=== PATIENT | female | born 1985 ===

== ENCOUNTER 2016-06-25 15:43 | Emergency (ER) | payer OTHER ==
[2016-06-25 16:03] VITALS: BMI 24.0
[2016-06-25 16:26] LABS: BASO % 0.4 % (0.0-2.0); EOS # 0.4 K/uL (0.0-0.7); EOS % 3.8 % (0.0-4.0); HEMATOCRIT 33.2 % (34.0-47.0); LYMPH # 1.7 K/uL (1.0-4.3); LYMPH % 16.7 % (20.0-40.0); MEAN CELL VOLUME 93.3 fl (81.0-99.0); MEAN CORPUSCULAR HEMOGLOBIN 30.8 pg (27.0-31.0); MONO # 0.8 K/uL (0.0-0.8); MONO % 7.4 % (0.0-10.0); NEUT # 7.5 K/uL (1.8-7.0); NEUT % 71.7 % (50.0-75.0); NRBC % 0.1 % (0.0-0.0); RED CELL DISTRIBUTION WIDTH 14.1 % (11.5-14.5); WHITE BLOOD COUNT 10.4 K/uL (4.8-10.8)
[2016-06-25 16:44] LABS: ALB/GLOB RATIO 1.2 (1.0-2.1); ALKALINE PHOSPHATASE 89 U/L (38-126); ALT/SGPT 19 U/L (9-52); AST/SGOT 24 U/L (14-36); BILIRUBIN,TOTAL 0.3 mg/dl (0.2-1.3); BLOOD UREA NITROGEN 8 mg/dl (7-17); CALCIUM 9.1 mg/dL (8.4-10.2); CARBON DIOXIDE 22 mmol/L (22-30); CHLORIDE 106 mmol/L (98-107); GFR AFRICAN-AMERICAN > 60; GLUCOSE,RANDOM 133 mg/dL (65-105); POTASSIUM 3.6 MMOL/L (3.6-5.0); SODIUM 140 mmol/l (132-148); TOTAL PROTEIN 6.7 G/DL (6.3-8.2)
[2016-06-25 17:07] LABS: RBC URINE 2 /hpf (0-3); URINE BACTERIA RARE (<OCC); URINE BILIRUBIN NEGATIVE (NEGATIVE); URINE BLOOD NEGATIVE (NEGATIVE); URINE COLOR YELLOW (YELLOW); URINE GLUCOSE (UA) NEG (Normal); URINE KETONE TRACE mg/dL (NEGATIVE); URINE LEUKOCYTE ESTERASE NEG Leu/uL (Negative); URINE PROTEIN NEGATIVE (NEGATIVE); URINE UROBILINOGEN 0.2-1.0 mg/dL (0.2-1.0); WBC URINE 1 /hpf (0-5)
--- NOTE | 2016-06-25 18:06 | US ---
HISTORY: right upper quadrant pain, patient is 26 weeks . COMPARISON: None available TECHNIQUE: Sonographic evaluation of the right upper quadrant of the abdomen. FINDINGS: LIVER: Measures 15.3 cm in length and appears otherwise unremarkable. No focal hepatic mass identified. The main portal vein appears patent with normal directional flow. No intrahepatic bile duct dilatation. GALLBLADDER: Two echogenic foci at the gallbladder wall measuring approximately 3 mm and 1 mm without clear evidence of posterior acoustic shadowing ; possibly polyps. No evidence of gallbladder sludge. No gallbladder wall thickening or pericholecystic edema. Negative sonographic Wong's sign as assessed by the inker machine. COMMON BILE DUCT: Measures 3 mm. PANCREAS: Not well-visualized. RIGHT KIDNEY: Measures 10.0 x 4.2 x 4.1. No obstructing calculus or hydronephrosis. AORTA: Limited visualization appears grossly unremarkable. IVC: Limited visualization appears grossly unremarkable. OTHER FINDINGS: None . IMPRESSION: Suspect gallbladder polyps measuring approximately 1 mm and 3 mm. Otherwise unremarkable study as above.
--- NOTE | 2016-06-25 18:35 | OBHP ---
Datetime: 06/25/2016 18:29 IP Adm Impression: , intrauterine ; No Active Labor; Intact Membranes IP Admit Plan: Observation/Evaluation; Discharge home Admit Comment, IP Provider: the patient is 30-year-old 2 para 1 last menstrual period 2015 estimated due date is October 09estimated gestational age 25 weeks. Patient presents to labor and d lality complaining of right upper quadrant pain12 weeks duration. Patient reports pain is stabbing o ccasionally aggravated by diet. Patient denies any fever chills nausea vomiting. Patient reports good movement no vaginal bleeding she denies headache blurred vision. Past medical history none Past surgical history none No known drug allergies social history denies alcohol tobacco use Obstetrical history patient reports one normal spontaneous vaginal delivery no complications Review of systems patient denies headache chest pain palpitations shortness of breath dizziness fa tigue vaginal bleeding dysuria constipation. Cold intolerance easy bruisabilitymusculoskeletal or suzan rological complaints Vital signs stable afebrile Physical exam see notes intrauterine at 25 weeks Right upper quadrant pain Liver function tests UA complete metabolic cord External monitor Observation NST Addendum patient went for a sonogram no evidence of gallbladder disease small polyp noted patient advised to follow-up with general surgeon in her PMD post Lab work normaldiscussed plan of care with Dr. Bell patient to follow up with court specialist in 1-2 weeks Pelvic Type - PN: Adequate Extremities - PN: Normal Abdomen - PN: Normal Back - PN: Not Done Breast - PN: Not Done Lungs - PN: Normal Heart - PN: Normal Thyroid - PN: Normal Neurologic - PN: Normal HEENT - PN: Normal General - PN: Normal FHR - Baseline A Provider: 145 Gestation - Est Wks by US: 25.0 EGA AdmitDate IP: 24.6 Vital Signs Provider: Reviewed IP Chief Complaint: Maternal discomfort NICHD Variability Prov Fetus A: Moderate 6-25bpm FHR Category Provider Fetus A: Category I NICHD Decel Fetus A IP Provider: None Genitourinary Exam: Not Done DTRs - PN: Normal
== END 2016-06-25 19:06 | disposition home or self-care (01) ==
LOC: H.EROB2 15:43
DX: O26.92 Pregnancy related conditions, unspecified, second trimester (principal); R10.11 Right upper quadrant pain; O47.02 False labor before 37 completed weeks of gestation, second trimester; Z3A.25 25 weeks gestation of pregnancy